=== PATIENT | female | born 1995 | race Caucasian/White ===

== ENCOUNTER 2019-04-19 20:56 | Emergency (ER) | payer SELFPAY ==
[~2019-04-19] VITALS: Ht 170.2 cm; Wt 86.2 kg
[~2019-04-19 20:56] MED LIST: ACET325T33 PO; DOXY25TA55 PO
[2019-04-19 21:00] VITALS: BP 134/76; PULSE 116; RESP 20; Ht 170.2 cm; Wt 86.2 kg
== END 2019-04-19 23:31 | disposition home or self-care (01) ==
LOC: FTE 20:56
DX: O99.511 Diseases of the respiratory system complicating pregnancy, first trimester (principal); J06.9 Acute upper respiratory infection, unspecified; Z3A.10 10 weeks gestation of pregnancy
CPT/HCPCS: 99282